=== PATIENT | male | born 1935 | race Caucasian/White ===

== ENCOUNTER → 2019-04-19 | Outpatient (CLI) | payer OTHER ==
[~2019-04-19] MED LIST: ADV500 IH; AMLO10TA7 PO; ASPI-1012 PO; ATOR20TA PO; CETI-109 PO; CLOP75TA14 PO; FINA5TAB41 PO; FLU15OS OU; FLUT16H NS; LANS30CA53 PO; MAGN250T10 PO; MULT1TAB70 PO; NIAC500T22 PO; TAMS0.4C32 PO; WHEA1POW2 PO
== END | disposition home or self-care (01) ==
LOC: SHCH 13:35
PROVIDERS: ATTEND Internal Medicine Cardiovascular Disease
DX: I35.1 Nonrheumatic aortic (valve) insufficiency (principal); R01.1 Cardiac murmur, unspecified
CPT/HCPCS: 93306; 93356; 93880